=== PATIENT | female | born 1980 | race Caucasian/White ===

== ENCOUNTER 2022-09-10 09:00 | Emergency (ER) | payer OTHER ==
[2022-09-10] MEDS ORDERED: CYCLOBENZAPRINE 10 MG TAB PO STA (09:30)
[2022-09-10] MEDS ORDERED: HYDROcodone/APAP 5-325MG 1 EACH TAB PO STA (09:30)
--- NOTE | 2022-09-10 10:11 | XR ---
EXAMINATION TYPE: XR cervical spine comp DATE OF EXAM: 09/10/2022 COMPARISON: NONE HISTORY: Pain TECHNIQUE: Four views are submitted. FINDINGS: The odontoid is intact. There are no compression deformities. The prevertebral soft tissue structur es are within normal limits. IMPRESSION: 1. No acute process. If symptoms persist or concern for disc herniation consider MRI.
--- NOTE | 2022-09-10 10:22 | ED ---
Neck Injury/Pain HPI - General Chief Complaint: Neck Pain/Injury Stated Complaint: neck pain Time Seen by Provider: 09/10/22 09:10 Source: patient, RN notes reviewed Mode of arrival: ambulatory Limitations: no limitations - History of Present Illness Initial Comments: 41-year-old female presents emergency Department chief complaint of neck pain. Patient states that she's been done on this for us. Days. Patient does have a history of chronic back issues denies any new trauma. Patient states it hurts with movement she does have better pain relief at rest she states that there is tightness along sides of her neck primarily on the left. She states that tonight appropriate this morning with no significant relief no focal weakness no headache no chest pain or shortness breath. - Related Data Previous Rx's Medication Instructions Recorded Cyclobenzaprine [Flexeril] 10 mg PO TID PRN #15 tab 09/10/22 predniSONE 50 mg PO DAILY #5 tab 09/10/22 Allergies Allergy/AdvReac Type Severity Reaction Status Date / Time No Known Allergies Allergy Verified 09/10/22 09:07 Review of Systems ROS Statement: Those systems with pertinent positive or pertinent negative responses have been documented in the HPI. ROS Other: All systems not noted in ROS Statement are negative. Past Medical History Past Medical History: No Reported History History of Any Multi-Drug Resistant Organisms: None Reported Additional Past Surgical History / Comment(s): Lap Past Psychological History: No Psychological Hx Reported Smoking Status: Current every day smoker Past Alcohol Use History: None Reported Past Drug Use History: Marijuana General Exam Limitations: no limitations General appearance: alert, in no apparent distress Head exam: Present: atraumatic, normocephalic, normal inspection Eye exam: Present: normal appearance, PERRL, EOMI. Absent: scleral icterus, conjunctival injection, periorbital swelling Neck exam: Present: normal inspection, tenderness (Cervical paraspinal, trapezius ). Absent: meningismus, full ROM, lymphadenopathy Respiratory exam: Present: normal lung sounds bilaterally. Absent: respiratory distress, wheezes, rales, rhonchi, stridor Cardiovascular Exam: Present: regular rate, normal rhythm, normal heart sounds. Absent: systolic murmur, diastolic murmur, rubs, gallop, clicks Course Vital Signs 09/10/22 09:05 Temperature 98 F Pulse Rate 88 Respiratory 20 Rate Blood Pressure 148/88 O2 Sat by Pulse 99 Oximetry Medical Decision Making - Medical Decision Making Was pt. sent in by a medical professional or institution (, NATHANIEL, FINAL ASSEMBLY AND PACKING SUPERVISOR, urgent care, hospital, or senior care...) When possible be specific @ -[No] Did you speak to anyone other than the patient for history (EMS, parent, family, police, friend...)? What history was obtained from this source @ -[No] Did you review nursing and triage notes (agree or disagree)? Why? @ -[I reviewed and agree with nursing and triage notes] Were old charts reviewed (outside hosp., previous admission, EMS record, old EKG, old radiological studies, urgent care reports/EKG's, senior care records)? Report findings @ -[No old charts were reviewed] Differential Diagnosis (chest pain, altered mental status, abdominal pain women, abdominal pain men, vaginal bleeding, weakness, fever, dyspnea, syncope, headache, dizziness, GI bleed, back pain, seizure, CVA, palpatations, mental health, musculoskeletal)? @ -[Cervical spasm, neck pain, neck strain, this list is not occlusive] EKG interpreted by me (3pts min.). @ -[None] X-rays interpreted by me (1pt min.). @ -[X-ray cervical spine shows no significant acute changes, follow-up for MRI] CT interpreted by me (1pt min.). @ -[None done] U/S interpreted by me (1pt. min.). @ -[None done] What testing was considered but not performed or refused? (CT, X-rays, U/S, labs)? Why? @ -[MRI can be completed outpatient] What meds were considered but not given or refused? Why? @ -[None] Did you discuss the management of the patient with other professionals (professionals i.e. , NATHANIEL, FINAL ASSEMBLY AND PACKING SUPERVISOR, lab, RT, psych nurse, dialysis social worker, sisal picker, teacher, personnel training officer, disease case manager rn)? Give summary @ -[No] Was smoking cessation discussed for >3mins.? @ -[No] Was critical care preformed (if so, how long)? @ -[No] Were there social determinants of health that impacted care today? How? (Homelessness, low income, unemployed, alcoholism, drug addiction, transpor tation, low edu. Level, literacy, decrease access to med. care, prison, rehab)? @ -[No] Was there de-escalation of care discussed even if they declined (Discuss DNR or withdrawal of care, Hospice)? DNR status @ -[No] What co-morbidities impacted this encounter? (DM, HTN, Smoking, COPD, CAD, Cancer, CVA, ARF, Chemo, Hep., AIDS, mental health diagnosis, sleep apnea, morbid obesity)? @ -[None] Was patient admitted / discharged? Hospital course, mention meds given and route, prescriptions, significant lab abnormalities, going to OR and other pertinent info. @ -[Discharged patient has cervical spasm. Patient feels improved after pain relief. Patient has no red flag symptoms. Patient discharged in stable condition with close follow-up return parameters discussed.] Undiagnosed new problem with uncertain prognosis? @ -[No] Drug Therapy requiring intensive monitoring for toxicity (Heparin, Nitro, Insulin, Cardizem)? @ -[No] Were any procedures done? @ -[No] Diagnosis/symptom? @ -[Cervical spasm] Acute, or Chronic, or Acute on Chronic? @ -Acute Uncomplicated (without systemic symptoms) or Complicated (systemic symptoms)? @ -.uncomplicated Side effects of treatment? @ -[No] Exacerbation, Progression, or Severe Exacerbation? @ -[No] Poses a threat to life or bodily function? How? (Chest pain, [place], [place], pneumonia, PE, COPD, DKA, ARF, appy, cholecystitis, CVA, Diverticulitis, Homicidal, Suicidal, threat to staff... and all critical care pts) @ -[No] Disposition Clinical Impression: Trapezius muscle spasm, Neck pain Disposition: HOME SELF-CARE Condition: Stable Instructions (If sedation given, give patient instructions): Muscle Spasm (ED), Spasmodic Torticollis (ED) Additional Instructions: Please return to the Emergency Department if symptoms worsen or any other concerns. Prescriptions: Cyclobenzaprine [Flexeril] 10 mg PO TID PRN #15 tab PRN Reason: Muscle Spasm predniSONE 50 mg PO DAILY #5 tab Is patient prescribed a controlled substance at d/c from ED?: No Referrals: Ronald Canada MD [Primary Care Provider] - 1-2 days Time of Disposition: 10:39
[2022-09-10] MEDS ORDERED: ACET/COD 300 MG/30 MG STARTER PACK 6 TAB BTL PO STA (10:40)
[2022-09-10 10:50] VITALS: BP 133/79; PULSE 62; RESP 18; TEMP 98
== END 2022-09-10 10:50 | disposition home or self-care (01) ==
LOC: EC 09:00
DX: M62.838 Other muscle spasm (principal); F17.200 Nicotine dependence, unspecified, uncomplicated; F12.90 Cannabis use, unspecified, uncomplicated
CPT/HCPCS: 72050; 99283

== ENCOUNTER 2022-10-02 22:03 | Observation (INO) | payer BC ==
[2022-10-02] MEDS ORDERED: SODIUM CHLORIDE 0.9% 1,000 ML IV STA (22:14)
[2022-10-02] MEDS ORDERED: FAMOTIDINE 20 MG/2 ML VIAL IV STA (22:33)
[2022-10-02] MEDS ORDERED: ONDANSETRON 4 MG/2 ML VIAL IVP STA (22:33)
[2022-10-02] MEDS ORDERED: PANTOPRAZOLE 40 MG/10 ML VIAL IVP STA (22:33)
[2022-10-02 22:40] LABS: Basophils % (A) 0 %; Eosinophils # (A) 0.2 k/uL (0-0.7); Eosinophils % (A) 2 %; HCT 45.8 % (34.0-46.0); HGB 15.4 gm/dL (11.4-16.0); Lymphocytes # (A) 3.1 k/uL (1.0-4.8); Lymphocytes % (A) 27 %; MCH 29.9 pg (25.0-35.0); MCHC 33.5 g/dL (31.0-37.0); MCV 89.3 fL (80.0-100.0); Mean Platelet Volume 8.9; Monocytes # (A) 0.5 k/uL (0-1.0); Monocytes % (A) 4 %; Neutrophils # (A) 7.5 k/uL (1.3-7.7); Neutrophils % (A) 65 %; Platelet Count 210 k/uL (150-450); RBC 5.13 m/uL (3.80-5.40); RDW 12.8 % (11.5-15.5); WBC 11.6 k/uL (3.8-10.6)
[2022-10-02 22:49] LABS: Partial Thromboplastin Time 24.8 sec (22.0-30.0); Prothrombin Time 10.2 sec (9.0-12.0)
[2022-10-02 22:56] LABS: ALT 29 U/L (4-34); AST 25 U/L (14-36); African American GFR (CKD) >90 (>60 ml/min/1.73 sqM); Albumin 4.1 g/dL (3.5-5.0); Alkaline Phosphatase 65 U/L (38-126); Anion Gap 7 mmol/L; Blood Urea Nitrogen 12 mg/dL (7-17); Carbon Dioxide 21 mmol/L (22-30); Chloride 108 mmol/L (98-107); Glucose 97 mg/dL (74-99); Lipase 104 U/L (23-300); Magnesium 1.9 mg/dL (1.6-2.3); Non-African American GFR(CKD) >90 (>60 ml/min/1.73 sqM); Potassium 3.7 mmol/L (3.5-5.1); Sodium 136 mmol/L (137-145); Total Bilirubin 0.7 mg/dL (0.2-1.3); Total Protein 6.6 g/dL (6.3-8.2)
--- NOTE | 2022-10-02 23:18 | ED ---
Chest Pain HPI - General Chief Complaint: Chest Pain Stated Complaint: Chest Pain Time Seen by Provider: 10/02/22 22:14 Source: patient Mode of arrival: wheelchair Limitations: no limitations - History of Present Illness Initial Comments: Patient is a 41-year-old female presents to the emergency department for chest pain. It started 2 days ago. Patient describes as a consistent burning/pressure sensation with intermittent sharp pain. No alleviating, exacerbating, or precipitating factors. Patient feels nauseous no vomiting. No shortness of breath, leg pain, leg swelling. No fever, chills, upper respiratory symptoms. No abdominal pain. Patient does not have history of cardiac disease. No history DVT or PE. She does have family history of cardiac disease including father who of congestive heart failure at age 56 and brother who of heart attack age 50. Patient has never been evaluated by mannequin wig maker she has never had an echocardiogram or stress test. She is a smoker with a 30 pack year history. She reports occasional alcohol use. Patient does state she is very anxious due to recent loss in the family. - Related Data Home Medications Medication Instructions Recorded Confirmed Ibuprofen [Motrin Ib] 400 mg PO Q8H PRN 10/02/22 10/02/22 Allergies Allergy/AdvReac Type Severity Reaction Status Date / Time No Known Allergies Allergy Verified 10/02/22 22:28 Review of Systems ROS Statement: Those systems with pertinent positive or pertinent negative responses have been documented in the HPI. ROS Other: All systems not noted in ROS Statement are negative. Past Medical History Past Medical History: No Reported History Additional Past Medical History / Comment(s): endometriosis History of Any Multi-Drug Resistant Organisms: None Reported Additional Past Surgical History / Comment(s): Lap Past Psychological History: No Psychological Hx Reported Smoking Status: Current every day smoker Past Alcohol Use History: None Reported Past Drug Use History: Marijuana General Exam Limitations: no limitations General appearance: alert, in no apparent distress Head exam: Present: atraumatic, normocephalic, normal inspection Eye exam: Present: normal appearance, PERRL, EOMI. Absent: scleral icterus, conjunctival injection, periorbital swelling Respiratory exam: Present: normal lung sounds bilaterally. Absent: respiratory distress, wheezes, rales, rhonchi, stridor Cardiovascular Exam: Present: regular rate, normal rhythm, normal heart sounds. Absent: systolic murmur, diastolic murmur, rubs, gallop, clicks GI/Abdominal exam: Present: soft, normal bowel sounds. Absent: distended, tenderness, guarding, rebound, rigid Extremities exam: Present: normal inspection, full ROM, normal capillary refill. Absent: calf tenderness Neurological exam: Present: alert, oriented X3, CN II-XII intact Psychiatric exam: Present: normal affect, anxious. Absent: normal mood Skin exam: Present: warm, dry, intact, normal color. Absent: rash Course Vital Signs 10/02/22 10/02/22 22:08 23:24 Temperature 97.9 F Pulse Rate 87 78 Respiratory 20 18 Rate Blood Pressure 155/94 119/81 O2 Sat by Pulse 99 98 Oximetry Chest Pain MDM - [facility] EKG taken at 22:35, interpreted by myself Sinus rhythm, no ST segment or T-wave abnormality Ventricular rate 66, NJ interval 148, QRS duration 89, QTC 395 Was pt. sent in by a medical professional or institution (, PA, EMPLOYMENT TRAINER, urgent care, hospital, or skilled nursing...) When possible be specific @ -No Did you speak to anyone other than the patient for history (EMS, parent, family, police, friend...)? What history was obtained from this source @ -No Did you review nursing and triage notes (agree or disagree)? Why? @ -I reviewed and agree with nursing and triage notes Were old charts reviewed (outside hosp., previous admission, EMS record, old EKG, old radiological studies, urgent care reports/EKG's, skilled nursing records)? Report findings @ -No old charts were reviewed Differential Diagnosis (chest pain, altered mental status, abdominal pain women, abdominal pain men, vaginal bleeding, weakness, fever, dyspnea, syncope, headache, dizziness, GI bleed, back pain, seizure, CVA, palpatations, mental health)? @ -Differential Chest Pain: Stable Angina, Unstable Angina, STEMI, NSTEMI Aortic Dissection, Pneumothorax, Musculoskeletal, Esophageal Spasm GERD, Cholecystitis, Pancreatitis, Zoster, this is not meant to be an all-inclusive list. EKG interpreted by me (3pts min.). @ -As above X-rays interpreted by me (1pt min.). @ -Yes, chest x-ray negative for acute process CT interpreted by me (1pt min.). @ -None done U/S interpreted by me (1pt. min.). @ -None done What testing was considered but not performed or refused? (CT, X-rays, U/S, labs)? Why? @ -None What meds were considered but not given or refused? Why? @ -None Did you discuss the management of the patient with other professionals (professionals i.e. Dr., PA, EMPLOYMENT TRAINER, lab, RT, psych nurse, social group worker, lens blocker, teacher, youth corrections officer, shoe caser)? Give summary @ -No Was smoking cessation discussed for >3mins.? @ -No Was critical care preformed (if so, how long)? @ -No Were there social determinants of health that impacted care today? How? (Homelessness, low income, unemployed, alcoholism, drug addiction, transportation, low edu. Level, literacy, decrease access to med. care, fpc, rehab)? @ -No Was there de-escalation of care discussed even if they declined (Discuss DNR or withdrawal of care, Hospice)? DNR status @ -No What co-morbidities impacted this encounter? (DM, HTN, Smoking, COPD, CAD, C ancer, CVA, ARF, Chemo, Hep., AIDS, mental health diagnosis, sleep apnea, morbid obesity)? @ -None Was patient admitted / discharged? Hospital course, mention meds given and route, prescriptions, significant lab abnormalities, going to OR and other pertinent info. @ -Admitted. Patient has atypical chest pain. EKG shows no evidence of acute ischemia initial troponin negative however patient has risk factors and will stay for cardiology evaluation. Case discussed with Dr. Granados who accepts admission Undiagnosed new problem with uncertain prognosis? @ -No Drug Therapy requiring intensive monitoring for toxicity (Heparin, Nitro, Insulin, Cardizem)? @ -No Were any procedures done? @ -No Diagnosis/symptom? @ -Atypical chest pain Acute, or Chronic, or Acute on Chronic? @ -Acute Uncomplicated (without systemic symptoms) or Complicated (systemic symptoms)? @ -default Side effects of treatment? @ -No Exacerbation, Progression, or Severe Exacerbation? @ -No Poses a threat to life or bodily function? How? (Chest pain, [place], [place], pneumonia, PE, COPD, DKA, ARF, appy, cholecystitis, CVA, Diverticulitis, Homicidal, Suicidal, threat to staff... and all critical care pts) @ -Yes Dr. Martin is my attending. Disposition Clinical Impression: Atypical chest pain Disposition: ADMITTED IP TO THIS HOSP Condition: Stable Referrals: None,Stated [Primary Care Provider] - 1-2 days
[2022-10-02 23:32] LABS: Appearance,Urine Clear (Clear); Bilirubin,Urine Negative (Negative); Blood,Urine Negative (Negative); Color,Urine Light Yellow; Glucose,Urine (UA) Negative (Negative); Ketones,Urine Negative (Negative); Leukocyte Esterase,Urine Negative (Negative); Nitrite,Urine Negative (Negative); PH, Urine 6.5 (5.0-8.0); Protein,Urine Negative (Negative); Specific Gravity,Urine 1.006 (1.001-1.035); Urobilinogen,Urine <2.0 mg/dL (<2.0)
--- NOTE | 2022-10-02 23:32 | XR ---
EXAMINATION TYPE: XR chest 2V DATE OF EXAM: 10/02/2022 COMPARISON: None INDICATION: Rest pain TECHNIQUE: Frontal and lateral views of the chest are obtained. FINDINGS: The heart size is normal. The pulmonary vasculature is normal. The lungs are clear. IMPRESSION: 1. No acute pulmonary process.
[2022-10-02] MEDS ORDERED: SODIUM CHLORIDE 0.9% 1,000 ML IV SCH (23:45)
[2022-10-02] MEDS ORDERED: KETOROLAC 15 MG/ML 1 ML VIAL IVP PRN (23:58)
[2022-10-02] MEDS ORDERED: ONDANSETRON 4 MG/2 ML VIAL IVP PRN (23:58)
[2022-10-03] MEDS ORDERED: ASPIRIN 325 MG TAB PO STA
[2022-10-03] MEDS ORDERED: ACETAMINOPHEN TAB 500 MG TAB PO PRN (00:01)
[2022-10-03 02:12] VITALS: TEMP 98.1
--- NOTE | 2022-10-03 03:47 | P.HPIM ---
History of Present Illness H&P Date: 10/03/22 The patient is a 41-year-old female with no known PMH presents to the emergency room with complaint of chest pain. The patient reports that she has been experiencing left-sided and substernal chest discomfort over the past 3-4 weeks, occurring intermittently, 9 out of 10 at maximal intensity, pressure and sharp in nature, nonradiating and nonpleuritic, with no alleviating or exacerbating features. She denied lower extremity swelling or pain. The patient reports a significant family history of heart disease with her father dying from just of heart failure at 56 and having suffered multiple MIs in his 40s. She also reports having lost her brother last week due to an VT and he was 50 years old. She was off reports smoking 1 pack of cigarettes daily with recreational marijuana use. She reports being chest pain free at the time of interview. In the emergency room, an EKG revealed sinus rhythm at [address]/T-wave changes noted as reviewed by me. Laboratory evaluation revealed leukocytosis of 11.6, sodium 136, chloride 108, CO2 21, troponin less than 0.012, and an unremarkable UA. ED documentation reviewed and case discussed with ED provider. Review of systems: Pertinent positives and negatives as discussed in HPI, a complete review of systems was performed and all other systems are negative. Physical examination: Vital signs reviewed General: non toxic, no distress, appears at stated age, normal weight Derm: no unusual rashes/lesions, warm Head: atraumatic, normocephalic, symmetric Eyes: EOMI, no lid lag, anicteric sclera, pupils equal round reactive to light ENT: Nose and ears atraumatic Neck: No cervical lymphadenopathy, trachea midline, supple Mouth: no lip lesion, mucus membranes moist Cardiovascular: S1S2 reg, no murmur, positive dorsalis pedis pulse bilateral, no edema Lungs: CTA bilateral, no rhonchi, no rales, no accessory muscle use Abdominal: soft, nontender to palpation, no guarding Ext: muscle strength 5 out of 5 in all 4 extremities grossly, no gross muscle atrophy, no contractures, Neuro: CN II-XI grossly intact, no gross focal neuro deficits Psych: Alert, oriented, appropriate affect Assessment: Chest pain with atypical features Leukocytosis Tobacco abuse Imaging: In the emergency room, an EKG revealed sinus rhythm at [address]/T-wave changes noted as reviewed by me. Chest x-ray was unremarkable. Data Review: Laboratory evaluation revealed leukocytosis of 11.6, sodium 136, chloride 108, CO2 21, troponin less than 0.012, and an unremarkable UA. Plan: Cardiac monitoring Cardiology consult Trend troponin Strongly advised on the importance of cessation from tobacco use Leukocytosis likely secondary to acute stressor with no signs of active infection at this time DVT prophylaxis: Heparin subcu The patient is admitted with an anticipated less than 2 midnight stay for evaluation of chest pain CODE STATUS: Full Code Discussed with: Patient Anticipated discharge place: Home Past Medical History Past Medical History: No Reported History Additional Past Medical History / Comment(s): endometriosis History of Any Multi-Drug Resistant Organisms: None Reported Additional Past Surgical History / Comment(s): Lap Past Psychological History: No Psychological Hx Reported Smoking Status: Current every day smoker Past Alcohol Use History: None Reported Past Drug Use History: Marijuana - Past Family History Father Family Medical History: Congestive Heart Failure (CHF) Medications and Allergies Home Medications Medication Instructions Recorded Confirmed Type Ibuprofen [Motrin Ib] 400 mg PO Q8H PRN 10/02/22 10/02/22 History Allergies Allergy/AdvReac Type Severity Reaction Status Date / Time No Known Allergies Allergy Verified 10/02/22 22:28 Physical Exam Vitals: Vital Signs Temp Pulse Pulse Resp BP BP Pulse Ox 10/03/22 02:00 98.1 F 72 19 151/90 94 L 10/03/22 00:41 65 126/75 10/03/22 00:30 71 19 96 10/03/22 00:20 68 20 97 10/03/22 00:10 68 11 L 97 10/03/22 00:00 80 12 97 10/02/22 23:50 81 14 98 10/02/22 23:40 85 18 119/81 98 10/02/22 23:30 156/92 10/02/22 23:24 78 18 119/81 98 10/02/22 22:50 72 100 10/02/22 22:40 75 19 168/96 99 10/02/22 22:30 83 128/88 98 10/02/22 22:21 77 97 10/02/22 22:08 97.9 F 87 20 155/94 99 Intake and Output 10/02/22 10/02/22 10/03/22 14:59 22:59 06:59 Other: Weight 59.421 kg 59.421 kg Results CBC & Chem 7: 10/02/22 22:27 10/02/22 22:27 Labs: Abnormal Lab Results - Last 24 Hours (Table) 10/02/22 10/02/22 Range/Units 22:27 22:27 WBC 11.6 H (3.8-10.6) k/uL Sodium 136 L (137-145) mmol/L Chloride 108 H (98-107) mmol/L Carbon Dioxide 21 L (22-30) mmol/L Thrombosis Risk Factor Assmnt - Choose All That Apply Any of the Below Risk Factors Present?: No
[2022-10-03 07:59] VITALS: BP 123/66; PULSE 67; RESP 16
[2022-10-03] MEDS ORDERED: HEPARIN SODIUM,PORCINE/PF 5,000 UNIT/0.5 ML SYRINGE SQ SCH (08:00)
--- NOTE | 2022-10-03 10:54 | P.CRDCN ---
History of Present Illness History of present illness: HISTORY OF PRESENT ILLNESS: This is a 41 year old female with a past medical history significant for nicotine dependence and family history of premature coronary artery disease. Patient does not follow with a medical i d sales. We have been asked to see the patient in consultation for chest pain. Patient examined at the bedside. Patient states that she has been having chest discomfort for the past week. She states it feels like somebody is sitting on her chest. She states the pain comes and goes. She states the episode lasted for a few minutes and then resolves on its own. She states the pain is nonexertional and can happen even when she is just watching TV. She denies having any palpitations. She does report having some associated nausea and lightheadedness. She is a current cigarette smoker of one pack per day. She states that her brother of a heart attack at the age of 50 and her father from heart disease in his mid 50s. * EKG reveals sinus mechanism with no signs of acute ischemia. * Chest xray negative for acute process * Laboratory data: WBC 11.6. Hemoglobin 15.4. Platelet count 210. Sodium 136. Potassium 3.7. BUN 12. Creatinine 0.63. Magnesium 1.9. Troponin negative 3 * Current home cardiac medications include none REVIEW OF SYSTEMS: At the time of my exam: CONSTITUTIONAL: Denies fever or chills. HEENT: Denies blurred vision, vision changes, or eye pain. Denies hemoptysis CARDIOVASCULAR: Denies chest pain. Denies orthopnea. Denies PND. Denies palpitations RESPIRATORY: Denies shortness of breath. GASTROINTESTINAL: Denies abdominal pain. Denies nausea or vomiting. HEMATOLOGIC: Denies bleeding disorders. GENITOURINARY: Denies any blood in urine. SKIN: Denies pruitis. Denies rash. PHYSICAL EXAM: VITAL SIGNS: Reviewed. GENERAL: Well-developed in no acute distress. HEENT: Head is normocephalic. Pupils are equal, round. Sclerae anicteric. Mucous membranes of the mouth are moist. Neck supple. No JVD or thyromegaly LUNGS: Respirations even and unlabored. Lungs essentially clear to auscultation bilaterally. HEART: Regular rate and rhythm. S1 and S2 heard. ABDOMEN: Soft. Nondistended. Nontender. EXTREMITIES: Normal range of motion. No clubbing or cyanosis. Peripheral pulses intact. No lower extremity edema NEUROLOGIC: Awake and alert. Oriented x 3. ASSESSMENT: Chest pain, troponins negative 3 Nicotine dependence Family history of premature coronary artery disease PLAN: An acute coronary event has been ruled out Obtain 2-D echo to assess cardiac structure and function Smoking cessation encouraged. Patient states that she is wanting to stop smoking. Patient to undergo stress echocardiogram today If negative, she may be discharged home from a cardiac standpoint Nurse practitioner note has been reviewed by physician. Signing provider agrees with the documented findings, assessment, and plan of care. Past Medical History Past Medical History: No Reported History Additional Past Medical History / Comment(s): endometriosis History of Any Multi-Drug Resistant Organisms: None Reported Additional Past Surgical History / Comment(s): Lap Past Psychological History: No Psychological Hx Reported Smoking Status: Current every day smoker Past Alcohol Use History: None Reported Past Drug Use History: Marijuana - Past Family History Father Family Medical History: Congestive Heart Failure (CHF) Medications and Allergies Home Medications Medication Instructions Recorded Confirmed Type Ibuprofen [Motrin Ib] 400 mg PO Q8H PRN 10/02/22 10/02/22 History Allergies Allergy/AdvReac Type Severity Reaction Status Date / Time No Known Allergies Allergy Verified 10/02/22 22:28 Physical Exam Vitals: Vital Signs Temp Pulse Pulse Resp BP BP Pulse Ox 10/03/22 07:35 98.1 F 67 16 123/66 98 10/03/22 02:00 98.1 F 72 19 151/90 94 L 10/03/22 00:41 65 126/75 10/03/22 00:30 71 19 96 10/03/22 00:20 68 20 97 10/03/22 00:10 68 11 L 97 10/03/22 00:00 80 12 97 10/02/22 23:50 81 14 98 10/02/22 23:40 85 18 119/81 98 10/02/22 23:30 156/92 10/02/22 23:24 78 18 119/81 98 10/02/22 22:50 72 100 10/02/22 22:40 75 19 168/96 99 10/02/22 22:30 83 128/88 98 10/02/22 22:21 77 97 10/02/22 22:08 97.9 F 87 20 155/94 99 Intake and Output 05/10/03/22 10/03/22 22:59 06:59 14:59 Other: # Voids 1 Weight 59.421 kg 59.421 kg Results 10/02/22 22:27 10/02/22 22:27 Cardiac Enzymes 10/02/22 10/02/22 10/03/22 Range/Units 22:27 22:27 00:16 AST 25 (14-36) U/L Troponin I <0.012 <0.012 (0.000-0.034) ng/mL 10/03/22 Range/Units 05:17 AST (14-36) U/L Troponin I <0.012 (0.000-0.034) ng/mL Coagulation 10/02/22 Range/Units 22: PT 10.2 (9.0-12.0) sec APTT 24.8 (22.0-30.0) sec CBC 10/02/22 Range/Units 22: WBC 11.6 H (3.8-10.6) k/uL RBC 5.13 (3.80-5.40) m/uL Hgb 15.4 (11.4-16.0) gm/dL Hct 45.8 (34.0-46.0) % Plt Count 210 (150-450) k/uL Comprehensive Metabolic Panel 10/02/22 Range/Units 22:27 Sodium 136 L (137-145) mmol/L Potassium 3.7 (3.5-5.1) mmol/L Chloride 108 H (98-107) mmol/L Carbon Dioxide 21 L (22-30) mmol/L BUN 12 (7-17) mg/dL Creatinine 0.63 (0.52-1.04) mg/dL Glucose 97 (74-99) mg/dL Calcium 9.0 (8.4-10.2) mg/dL AST 25 (14-36) U/L ALT 29 (4-34) U/L Alkaline Phosphatase 65 (38-126) U/L Total Protein 6.6 (6.3-8.2) g/dL Albumin 4.1 (3.5-5.0) g/dL Current Medications Generic Name Dose Route Start Last Admin Trade Name Freq PRN Reason Stop Dose Admin Acetaminophen 1,000 mg 10/03/22 00:01 Acetaminophen Tab 500 Mg Tab PO Q4H PRN Pain Heparin Sodium (Porcine) 5,000 unit 10/03/22 08:00 Heparin Sodium,Porcine/Pf 5,000 Unit/0.5 Ml Syringe SQ Q8HR TRISTON Sodium Chloride 1,000 mls @ 75 mls/hr 10/02/22 23:45 10/03/22 00:14 Saline 0.9% IV 75 mls/hr .[id number] TRISTON Administration Ondansetron HCl 4 mg 10/02/22 23:58 Ondansetron 4 Mg/2 Ml Vial IVP Q8HR PRN Nausea And Vomiting Intake and Output 10/02/22 10/03/22 10/03/22 22:59 06:59 14:59 Other: # Voids 1 Weight 59.421 kg 59.421 kg 10/02/22 22:27 10/02/22 22:27
--- NOTE | 2022-10-03 13:20 | P.DS ---
Providers Date of admission: 10/03/22 00:14 Expected date of discharge: 10/03/22 Attending physician: Karl Granados MD Consults: 10/02/22 23:58 Consult Physician Routine Consulting Provider: Maximilian Estrada Consult Reason/Comments: chest pain Do you want consulting provider notified?: Yes Primary care physician: Stated None Hospital Course: Discharge Diagnosis: Chest pain, acute coronary event ruled out. Patient to follow-up outpatient with their office in one week to discuss echocardiogram results as they are not available at time of discharge. Nicotine dependence, recommend smoking cessation. Hospital Course: Patient is a very pleasant 41-year-old female with a past medical history of nicotine dependence and family history of premature coronary artery disease with reports of losing her father and brother by the age of 51 to an acute coronary event. Patient presented to the emergency department with the chief complaint of chest pain. Patient reported she had been experiencing intermittent chest pain over the past week and isn't sure if it is due to stress or cardiac problems because she just recently lost her brother to a massive heart attack at the age of 50. Patient states pain is to midsternal chest and described as a pressure-like sensation. She states she has experiences pain with exertion as well as at rest and does not seem to identify any known triggering factors. She underwent full evaluation in the emergency department. Labs completed and reviewed. CBC showing mild leukocytosis with WBC count of 11.6. Coagulation profile unremarkable BMP revealing mild hyponatremia with sodium of 136, hypochloremia with chloride of 108, and hypocarbia with bicarb of 21. Liver profile unremarkable. Troponin less than 0.012. Lipase 104. Urinalysis negative for infection. EKG was completed showing normal sinus rhythm at 66 bpm with no noted T-wave or ST abnormalities showing no signs of acute ischemia upon personal review and interpretation. Chest x-ray also reviewed lungs clear showing no signs of acute cardiopulmonary process. Patient was admitted under our services with consultation to cardiology. Troponins trended overnight all negative at less than 0.0123 draws. Hemoglobin A1c obtained resulting of 5.3%. Lipid profile unremarkable with the exception of low HDL of 35.80. Echocardiogram was completed and patient was taken for an exercise stress echo. Stress test was reported to be negative per cardiology as reported as not available at time of discharge. Patient cleared from cardiac perspective and to follow up outpatient with their office in one week to discuss echocardiogram results as they are not available at time of discharge. Physical exam: Patient seen and examined at bedside. She has returned from stress test today and eating lunch currently denying any complaints of pain or discomfort. Patient was a little tearful and relieved when informed of negative stress test results. Vital signs reviewed and stable. General: Nontoxic, no distress and appears stated age. Derm: Skin warm and dry, normal coloration for ethnicity. Head: Atraumatic, normocephalic and symmetric. Eyes: EOMs intact, no lid lag, and anicteric sclera Mouth: no lip lesions, mucus membranes moist Cardiovascular: regular rate and rhythm with normal S1S2, no murmur, positive posterior tibial pulses bilaterally, and cap refill < 2 seconds. Lungs: Respirations even, regular, and unlabored on room air. Lungs CTA bilaterally, no rhonchi, no rales, no wheezing, and no accessory muscle usage. Abdominal: soft, nontender to palpation, no guarding, no appreciable organomegaly Ext: ROM intact. No gross muscle atrophy, no edema, no contractures Neuro: Speech clear, face symmetrical and CN II-XII grossly intact with no noted focal neuro deficits Psych: Alert and oriented to person, place, time, and situation. Appropriate and pleasant affect. A total of 31 minutes of time were spent preparing this complex discharge summary. Pt was discharged on 10/03/22 at 12:34 PM Patient was seen independently by Nurse Practitioner. This document was prepared using [employer] dictation software. Please allow for errors in customer support assistant while rare they do occur. Patient Condition at Discharge: Stable Plan - Discharge Summary New Discharge Prescriptions: Continue Ibuprofen [Motrin Ib] 400 mg PO Q8H PRN PRN Reason: Pain Discharge Medication List Ibuprofen [Motrin Ib] 400 mg PO Q8H PRN 10/02/22 [History] Follow up Appointment(s)/Referral(s): Hugo Bridges MD [STAFF PHYSICIAN] - 2 Weeks (Office will call with appointment time and date.) Celso Bhatti MD [REFERRING] - 1 Week Patient Instructions/Handouts: Chest Pain (DC), Cardiac Stress Test (DC) Activity/Diet/Wound Care/Special Instructions: Activity: As tolerated. Take breaks as needed. Diet: Heart healthy and carb consistent diet. Avoid salts, or foods with hidden salts such as canned or boxed foods and frozen dinners. Extra salt makes your heart work harder and traps the fluid in your body for longer. Special Instructions: Take all of your medications as directed and remember to keep all of your doctor's appointments and follow-up as needed. You were cleared from cardiac perspective but it is important to follow up outpatient with their office in one week to discuss echocardiogram results as they are not available at time of your discharge. Strongly encourage smoking cessation. Thank you for allowing us to participate in your care, it was truly a pleasure having you for our patient!!! Discharge Disposition: HOME SELF-CARE
[2022-10-03 16:17] LABS: Chol/HDL Ratio 4.11 Ratio; LDL Cholesterol,Calculated 95.2 mg/dL (0.0-131.0); VLDL Calculation 16.02 mg/dL (5.00-40.00)
--- NOTE | 2022-10-04 17:04 | CA ---
Transthoracic Echo Report Name: Piper Mendieta Age: 41 Gender: F : 1980 Exam Date: 10/03/2022 12:14 Exam Location: [facility] [place] [facility] Ht (in): 66 Wt (lb): 131 Ordering Physician: Brittany Braxton Attending/Referring Phys: [id number], Irais Guyline Operator Cindi Suarez RDCS Procedure CPT: Indications: LV function Cardiac Hx: Technical Quality: Fair Contrast 1: Total Dose (mL): Contrast 2: Total Dose (mL): MEASUREMENTS (Male / Female) Normal Values 2D ECHO LV Diastolic Diameter PLAX 3.8 cm 4.2 - 5.9 / 3.9 - 5.3 cm LV Systolic Diameter PLAX 2.0 cm IVS Diastolic Thickness 0.9 cm 0.6 - 1.0 / 0.6 - 0.9 cm LVPW Diastolic Thickness 1.0 cm 0.6 - 1.0 / 0.6 - 0.9 cm LV Relative Wall Thickness 0.5 RV Internal Dim ED PLAX 3.1 cm LA Volume 24.4 cm??? 18 - 58 / 22 - 52 cm??? M-MODE Aortic Root Diameter MM 2.7 cm LA Systolic Diameter MM 3.7 cm LA Ao Ratio MM 1.3 AV Cusp Separation MM 2.0 cm DOPPLER AV Peak Velocity 123.9 cm/s AV Peak Gradient 6.1 mmHg AV Mean Velocity 91.8 cm/s AV Mean Gradient 3.7 mmHg AV Velocity Time Integral 28.0 cm LVOT Peak Velocity 118.8 cm/s LVOT Peak Gradient 5.6 mmHg LVOT Velocity Time Integral 25.4 cm MV Area PHT 4.2 cm??? Mitral E Point Velocity 87.7 cm/s Mitral A Point Velocity 68.0 cm/s Mitral E to A Ratio 1.3 MV Deceleration Time 178.8 ms MV E' Velocity 11.0 cm/s Mitral E to MV E' Ratio 8.0 TR Peak Velocity 208.8 cm/s TR Peak Gradient 17.4 mmHg Right Ventricular Systolic Press 21.9 mmHg FINDINGS Left Ventricle Normal Left ventricular size, wall thickness, systolic function with no obvious regional wall motion abnormalities. Normal Left ventricular diastolic filling pattern. Left ventricular ejection fraction is estimated at 55-60 %. Right Ventricle Normal right ventricular size and function. Right ventricular systolic pressure within normal limits. Right Atrium Normal right atrial size. Left Atrium Normal left atrial size. Mitral Valve Structurally normal mitral valve. No mitral stenosis, regurgitation or prolapse. Aortic Valve Trileaflet aortic valve. No aortic valve stenosis or regurgitation. Tricuspid Valve Structurally normal tricuspid valve. Mild tricuspid regurgitation. Pulmonic Valve Structurally normal pulmonic valve. Trace pulmonic regurgitation. Pericardium No pericardial effusion. Aorta Normal size aortic root and proximal ascending aorta. CONCLUSIONS Normal LV systolic function Previewed by: Dr. Hugo Bridges MD (Electronically Signed) Final Date: 04 Oct 2022 17:04
--- NOTE | 2022-10-04 17:59 | CA ---
Stress Echo Report Piper Mendieta Age: 41 Gender: F : 1980 Exam Date: 10/03/2022 11:53 Exam Location: [facility] Ht (in): 66 Wt (lb): 131 Ordering Physician: Brittany Braxton Referring Physician: [id number] Leaf Conditioner: AIDEN Technologist Procedure CPT: Indication: CP ICD-9 Codes: Rhythm: Patient History: CHEST PAIN, DIFFICULTY IN BREATHING, FAMILY HX OF HEART DISEASE, CURRENT SMOKER 1 PPD X 30 YEARS Cardiac Medications: Medications in past 24 hours: Contrast: Stress Results Protocol: Sabas Total dose(mL): Exercise Duration (min:sec): 10:[address] Depression (mm): Angina Score: Vega Score: METS: 11.7 Resting HR: 76 Resting BP: 141 / 77 Peak HR: 163 Peak BP: 201 / 92 Max Predicted HR: 180 91 % Max Predicted HR Target HR: 153 Double Product: [id number] Stress Summary: BP Response: Reason for Termination: TARGET HR/MAX EXERTION Cardiac Symptoms: NONE ECG Analysis Resting ECG: Stress ECG: Arrhythmia: Echo Analysis Resting Echo: Peak Echo Analysis: MEASUREMENTS (Male/Female) Normal Values CONCLUSIONS Exercise stress echo 9756 beats a minute, Baseline blood pressure 141/77 mmHg Patient exercised Sabas protocol for an minutes 13 seconds Peak heart rate 163 beats a minute to 90 blood pressure 201/92 mmHg No ECG ms for ischemia line no significant arrhythmias Excellent augmentation of overall LV contractility at peak exercise Normal LV systolic function at the recovery Impression No ECG or echocardiographic evidence for ischemia Good exercise capacity Dr. Hugo Bridges MD (Electronically Signed) Final Date: 04 Oct 2022 17:59
== END 2022-10-03 13:51 | disposition home or self-care (01) ==
LOC: EC 22:03 → 6NMEDSUR 10-03 00:14
PROVIDERS: ADMIT Internal Medicine; ATTEND Internal Medicine
DX: R07.89 Other chest pain (principal); E87.1 Hypo-osmolality and hyponatremia; D72.829 Elevated white blood cell count, unspecified; E87.8 Other disorders of electrolyte and fluid balance, not elsewhere classified; R11.0 Nausea; R42 Dizziness and giddiness; N80.9 Endometriosis, unspecified; F17.210 Nicotine dependence, cigarettes, uncomplicated; Z63.4 Disappearance and death of family member; Z82.49 Family history of ischemic heart disease and other diseases of the circulatory system; Z71.6 Tobacco abuse counseling
CPT/HCPCS: 96361; 96374; 96375; 99285; 36415; 93005; 93306; 93351; 80061; 80053; 83690; 83735; 84484 ×2; 85025; 85610; 85730; 81003; 83036; 71046; G0378; J2405; C9113

== ENCOUNTER → 2022-10-14 | Outpatient (CLI) | payer OTHER ==
--- NOTE | 2022-10-14 10:53 | XR ---
EXAM TYPE: LUMBAR SPINE X RAY SERIES COMPARISON: NONE HISTORY: Chronic back pain TECHNIQUE: 4 views are submitted. FINDINGS: Alignment is anatomic. The pedicles are intact. The transverse processes are intact. There is no s pondylolysis or spondylolisthesis. Hypertrophic and mild multilevel degenerative disc disease. There is facet arthropathy at levels L4-5 and L5-S1. IMPRESSION: 1. Multilevel mild degenerative disc disease with facet arthropathy most noted at L4-5 and L5-S1. Con patient financial counselor follow-up MRI.
== END | disposition home or self-care (01) ==
LOC: RADXRMAIN 10:18
PROVIDERS: ATTEND Family Medicine
DX: M51.36 Other intervertebral disc degeneration, lumbar region (principal); M51.37 Other intervertebral disc degeneration, lumbosacral region; M47.816 Spondylosis without myelopathy or radiculopathy, lumbar region; M47.817 Spondylosis without myelopathy or radiculopathy, lumbosacral region; G89.29 Other chronic pain
CPT/HCPCS: 72110

== ENCOUNTER 2023-08-12 11:21 | Emergency (ER) | payer OTHER ==
[2023-08-12] MEDS: HYDROcodone/APAP 10-325MG 1 EACH TAB PO ONE (11:50)
[2023-08-12] MEDS: ORPHENADRINE 30 MG/ML 2 ML VIAL IM STA (11:51)
[2023-08-12] MEDS: KETOROLAC 15 MG/ML 1 ML VIAL IM STA (11:52)
[2023-08-12] MEDS: LIDOCAINE 4% PATCH TOPICAL ONE (12:06)
--- NOTE | 2023-08-12 12:08 | ED ---
Back Pain HPI - General Chief Complaint: Back Pain/Injury Stated Complaint: Low back pain Time Seen by Provider: 08/12/23 11:26 Source: patient, family, RN notes reviewed Mode of arrival: ambulatory Limitations: no limitations - History of Present Illness Initial Comments: This is a 42-year-old female who presents to the emergency department for lower back pain. Patient has chronic lower back pain that she has been dealing with for the last couple of years. She has had occasional x-rays and steroid injections, but not any advanced imaging. States that over the last 1 to 2 days the pain became severe. She has radiation down the left leg. Denies any new injuries. Denies any loss of bowel/bladder control or saddle anesthesia. MD Complaint: back pain - Related Data Home Medications Medication Instructions Recorded Confirmed Venlafaxine HCl ER [Effexor Xr] 75 mg PO DAILY 08/12/23 08/12/23 Venlafaxine HCl [Effexor XR] 150 mg PO DAILY 08/12/23 08/12/23 busPIRone HCL 15 mg PO BID 08/12/23 08/12/23 clonazePAM 1 mg PO BID 08/12/23 08/12/23 hydrOXYzine HCL [Atarax] 25 mg PO HS 08/12/23 08/12/23 Previous Rx's Medication Instructions Recorded methocarbamoL [Robaxin-750] 1,500 mg PO TID PRN #30 tab 08/12/23 predniSONE 50 mg PO DAILY 5 Days #5 tab 08/12/23 Allergies Allergy/AdvReac Type Severity Reaction Status Date / Time No Known Allergies Allergy Verified 08/12/23 11:52 Review of Systems ROS Statement: Those systems with pertinent positive or pertinent negative responses have been documented in the HPI. ROS Other: All systems not noted in ROS Statement are negative. Past Medical History Past Medical History: No Reported History Additional Past Medical History / Comment(s): endometriosis chronic back pain History of Any Multi-Drug Resistant Organisms: None Reported Additional Past Surgical History / Comment(s): Lap Past Psychological History: No Psychological Hx Reported Smoking Status: Current every day smoker Past Alcohol Use History: None Reported Past Drug Use History: Marijuana - Past Family History Father Family Medical History: Congestive Heart Failure (CHF) General Exam Limitations: no limitations General appearance: alert, in no apparent distress Head exam: Present: atraumatic, normocephalic, normal inspection Respiratory exam: Present: normal lung sounds bilaterally. Absent: respiratory distress, wheezes, rales, rhonchi, stridor Cardiovascular Exam: Present: regular rate, normal rhythm, normal heart sounds. Absent: systolic murmur, diastolic murmur, rubs, gallop, clicks Back exam: Present: tenderness (Left lower back) Neurological exam: Present: alert, oriented X3, CN II-XII intact Psychiatric exam: Present: normal affect, normal mood Skin exam: Present: warm, dry, intact, normal color. Absent: rash Course Vital Signs 08/12/23 08/12/23 08/12/23 11:22 12:41 12:55 Temperature 98 F 98.1 F 98.1 F Pulse Rate 86 82 82 Respiratory 16 18 18 Rate Blood Pressure 145/89 136/90 136/90 O2 Sat by Pulse 99 99 99 Oximetry Medical Decision Making - Medical Decision Making This is a 42 year old female who presents to the emergency department for back pain. Was pt. sent in by a medical professional or institution? @ -No Did you speak to anyone other than the patient for history? @ -No Did you review nursing and triage notes? @ -Yes, and I agree, it is accurate with regards to the patient's symptoms. Were old charts reviewed? @ -No Differential Diagnosis? @ -Differential Back Pain: Strain, zoster, cauda equina syndrome, epidural abscess, vertebral osteomyelitis, discitis, fracture, subluxation, disc herniation, DJD, spinal stenosis, dissection, AAA, pancreatitis, peptic ulcer disease, pyelonephritis, kidney stone, this is not meant to be an all-inclusive list. EKG interpreted by me (3pts min.)? @ -Not obtained X-rays interpreted by me (1pt min.)? @ -X-ray of the lumbar spine obtained. My interpretation identifies no acute fractures. CT interpreted by me (1pt min.)? @ -Not obtained U/S interpreted by me (1pt. min.)? @ -Not obtained What testing was considered but not performed? (CT, X-rays, U/S, labs)? Why? @ -None What meds were considered but not given? Why? @ -None Did you discuss the management of the patient with other professionals? @ -No Did you reconcile home meds? @ -No Was smoking cessation discussed for >3mins.? @ -No Was critical care preformed (if so, how long)? @ -No Were there social determinants of health that impacted care today? How? (Homelessness, low income, unemployed, alcoholism, drug addiction, transportat ion, low edu. Level, literacy, decrease access to med. care, senior living, rehab)? @ -No Was there de-escalation of care discussed even if they declined? (Discuss DNR or withdrawal of care, Hospice)? @ -No What co-morbidities impacted this encounter? (DM, HTN, Smoking, COPD, CAD, Cancer, CVA, Hep., AIDS, mental health diagnosis, sleep apnea, morbid obesity)? @ -Chronic back pain Was patient admitted / discharged? @ -Discharged. X-ray of the lumbar spine obtained revealing no acute process. Pain controlled in the emergency department. Prescription for prednisone and Robaxin provided with dosing instructions reviewed for lumbar radiculopathy/sciatica. Information for orthopedic spine follow up provided. Andre stringer advised follow-up with her primary care provider. Undiagnosed new problem with uncertain prognosis? @ -None Drug Therapy requiring intensive monitoring for toxicity (Heparin, Nitro, Insulin, Cardizem)? @ -None Were any procedures done? @ -None Diagnosis/symptom? @ -Low back pain Acute, or Chronic, or Acute on Chronic? @ -Acute on chronic Uncomplicated (without systemic symptoms) or Complicated (systemic symptoms)? @ -Uncomplicated Side effects of treatment? @ -None Exacerbation, Progression, or Severe Exacerbation] @ -Exacerbation Poses a threat to life or bodily function? @ -No Return precautions reviewed in depth, the patient is instructed to return to the emergency department with any new, worsening, or concerning symptoms. Patient verbalized understanding. This case was discussed in detail with the attending ED physician, Dr. Blevins. Presentation, findings, and treatment plan discussed in detail as well. - Radiology Data Radiology results: report reviewed, image reviewed Disposition Clinical Impression: Lumbar radiculopathy Disposition: HOME SELF-CARE Instructions (If sedation given, give patient instructions): Lumbar Radiculopathy (ED) Additional Instructions: Return to the emergency department with any new, worsening, or concerning symptoms. Take the prednisone daily for 5 days. Take the Robaxin as 1 to 2 tablets up to 3-4 times daily. Be aware that this may make you drowsy. Make sure you also alternate with ibuprofen and Tylenol for pain relief. Contact orthopedics as below for a follow-up appointment. Follow up with your primary care provider in 1-2 days. Prescriptions: predniSONE 50 mg PO DAILY 5 Days #5 tab methocarbamoL [Robaxin-750] 1,500 mg PO TID PRN #30 tab PRN Reason: Pain Is patient prescribed a controlled substance at d/c from ED?: No Referrals: Dm Bobby DO [Doctor of Osteopathic Medicine] - As Soon As Possible Belén Ayala [Primary Care Provider] - 1-2 days Time of Disposition: 12:50
--- NOTE | 2023-08-12 12:10 | XR ---
EXAMINATION TYPE: XR lumbar spine 2 or 3V DATE OF EXAM: 08/12/2023 12:02 PM CLINICAL INDICATION:Female, 42 years old with history of Pain; PHH COMPARISON: None TECHNIQUE: XR lumbar spine 2 or 3V - Frontal, lateral and coned in L5-S1 lateral views of the spine. FINDINGS: No evidence of any acute osseous pathology. No evidence of loss of vertebral body height i s seen. There is normal alignment of the lumbar vertebral bodies. Mild scattered disc space narrowing . Multilevel marginal osteophyte formation throughout the visualized spine. There is facet joint arth ropathy throughout the spine. Scattered at least mild neural foraminal stenosis. IMPRESSION: 1. No acute fracture. 2. Mild multilevel disc degeneration.
[2023-08-12] MEDS: MORPHINE SULFATE 4 MG/ML SYRINGE IM STA (12:50)
[2023-08-12] MEDS: ACET/COD 300 MG/30 MG STARTER PACK 6 TAB BTL PO STA (12:52)
[2023-08-12 13:14] VITALS: BP 136/90; PULSE 82; RESP 18; TEMP 98.1
== END 2023-08-12 12:55 | disposition home or self-care (01) ==
LOC: EC 11:21
DX: M54.16 Radiculopathy, lumbar region (principal); F17.200 Nicotine dependence, unspecified, uncomplicated; F12.90 Cannabis use, unspecified, uncomplicated
CPT/HCPCS: 72100; 99284; 96372 ×3; J2270; J2360; J1885

== ENCOUNTER 2023-11-05 11:25 | Emergency (ER) | payer OTHER ==
--- NOTE | 2023-11-05 12:06 | ED ---
General Adult HPI - General Source: RN notes reviewed <Omar Bosch - Last Filed: 11/05/23 14:42> - General Source: patient Mode of arrival: ambulatory Limitations: no limitations <Bert Andrew - Last Filed: 11/05/23 14:48> - General Chief complaint: Back Pain/Injury Stated complaint: Back Pain Time Seen by Provider: 11/05/23 11:37 - History of Present Illness Initial comments: Dictation was produced using [employer] dictation software. please excuse any grammatical, word or spelling errors. Chief Complaint: 43-year-old female presents with back pain History of Present Illness: Patient is a 43-year-old female presents to the emergency department with back pain. Patient states she has chronic back pain sees a patient resource specialist. Over the weekend approximately 4 days ago she fell. She was standing on rocks taking pictures when she fell landing in a twisted motion. Patient [place] any radiation of symptoms. Patient able to ambulate with a limp. No saddle anesthesia. Denies any fever. The ROS documented in this emergency department record has been reviewed and confirmed by me. Those systems with pertinent positive or negative responses have been documented in the HPI. All other systems are other negative and/or noncontributory. (Bert Andrew) - Related Data Home Medications Medication Instructions Recorded Confirmed Venlafaxine HCl ER [Effexor Xr] 75 mg PO DAILY 08/12/23 08/12/23 Venlafaxine HCl [Effexor XR] 150 mg PO DAILY 08/12/23 08/12/23 busPIRone HCL 15 mg PO BID 08/12/23 08/12/23 clonazePAM 1 mg PO BID 08/12/23 08/12/23 hydrOXYzine HCL [Atarax] 25 mg PO HS 08/12/23 08/12/23 Previous Rx's Medication Instructions Recorded methocarbamoL [Robaxin-750] 1,500 mg PO TID PRN #30 tab 08/12/23 predniSONE 50 mg PO DAILY 5 Days #5 tab 08/12/23 HYDROcodone/APAP 5-325MG [[place] 5] 1 each PO Q6HR PRN #12 tab 11/05/23 Allergies Allergy/AdvReac Type Severity Reaction Status Date / Time No Known Allergies Allergy Verified 08/12/23 11:52 Review of Systems ROS Other: All systems not noted in ROS Statement are negative. <Omar Bosch - Last Filed: 11/05/23 14:42> ROS Other: All systems not noted in ROS Statement are negative. <Bert Andrew - Last Filed: 11/05/23 14:48> ROS Statement: Those systems with pertinent positive or pertinent negative responses have been documented in the HPI. Past Medical History Past Medical History: No Reported History Additional Past Medical History / Comment(s): endometriosis chronic back pain History of Any Multi-Drug Resistant Organisms: None Reported Additional Past Surgical History / Comment(s): Lap Past Psychological History: No Psychological Hx Reported Smoking Status: Current every day smoker Past Alcohol Use History: None Reported Past Drug Use History: Marijuana - Past Family History Father Family Medical History: Congestive Heart Failure (CHF) <Bert Andrew - Last Filed: 11/05/23 14:48> General Exam Limitations: no limitations <Bert Andrew - Last Filed: 11/05/23 14:48> - General Exam Comments Initial Comments: PHYSICAL EXAM: General Impression: Alert and oriented x3, not in acute distress HEENT: Normocephalic atraumatic, extra-ocular movements intact, pupils equal and reactive to light bilaterally, mucous membranes moist. Cardiovascular: Heart regular rate and rhythm Chest: Able to complete full sentences, no retractions, no tachypnea Abdomen: abdomen soft, non-tender, non-distended, no organomegaly Musculoskeletal: Pulses present and equal in all extremities, no peripheral edema Motor: no focal deficits noted Neurological: CN II-XII grossly intact, no focal motor or sensory deficits noted Skin: Intact with no visualized rashes Psych: Normal affect and mood (Bert Andrew) Course Vital Signs 11/05/23 11:33 Temperature 98.3 F Pulse Rate 80 Respiratory 20 Rate Blood Pressure 131/85 O2 Sat by Pulse 98 Oximetry Medical Decision Making <Bert Andrew - Last Filed: 11/05/23 14:48> - Medical Decision Making Was pt. sent in by a medical professional or institution (, PA, [facility], urgent care, hospital, or skilled nursing...) When possible be specific @ -No Did you speak to anyone other than the patient for history (EMS, parent, family, police, friend...)? What history was obtained from this source @ -No Did you review nursing and triage notes (agree or disagree)? Why? @ -I reviewed and agree with nursing and triage notes Were old charts reviewed (outside hosp., previous admission, EMS record, old EKG, old radiological studies, urgent care reports/EKG's, skilled nursing records)? Report findings @ -No old charts were reviewed Differential Diagnosis (chest pain, altered mental status, abdominal pain women, abdominal pain men, vaginal bleeding, musculoskeletal, weakness, fever, dyspnea, syncope, headache, dizziness, GI bleed, back pain, seizure, CVA, palpatations, mental health)? @ -Differential Back Pain: Strain, zoster, cauda equina syndrome, epidural abscess, vertebral osteomyelitis, discitis, fracture, subluxation, disc herniation, DJD, spinal stenosis, dissection, AAA, pancreatitis, peptic ulcer disease, pyelonephritis, kidney stone, this is not meant to be an all-inclusive list. EKG interpreted by me (3pts min.). @ -None done X-rays interpreted by me (1pt min.). @ -None done CT interpreted by me (1pt min.). @ -CT scan of lumbar spine without contrast shows no acute processes U/S interpreted by me (1pt. min.). @ -None done What testing was considered but not performed or refused? (CT, X-rays, U/S, labs)? Why? @ -None What meds were considered but not given or refused? Why? @ -None Was smoking cessation discussed for >3mins.? @ -No Were there social determinants of health that impacted care today? How? (Homelessness, low income, unemployed, alcoholism, drug addiction, transportation, low edu. Level, literacy, decrease access to med. care, retirement, rehab)? @ -No Was there de-escalation of care discussed even if they declined (Discuss DNR or withdrawal of care, Hospice)? DNR status @ -No What co-morbidities impacted this encounter? (DM, HTN, Smoking, COPD, CAD, Cancer, CVA, ARF, Chemo, Hep., AIDS, mental health diagnosis, sleep apnea, morbid obesity)? @ -None Was patient admitted / discharged? Hospital course, mention meds given and route, prescriptions, significant lab abnormalities, going to OR and other pertinent info. @ -43 yo F presents with traumatic back pain. patient fell several days ago. vital signs stable. no red flag symptoms. CT ordered for back pain after fall. CT negative. patient discharged with follow up to her patient resource specialist. Did you discuss the management of the patient with other professionals (ann emarie aleman i.eLb Cardenas, PA, [facility], lab, RT, psych nurse, sr. social media & mobile manager, medical csr, teacher, public safety officer, case assistant)? Give summary @ -No Was critical care preformed (if so, how long)? @ -No Undiagnosed new problem with uncertain prognosis? @ -No Drug Therapy requiring intensive monitoring for toxicity (Heparin, Nitro, Insulin, Cardizem)? @ -No Were any procedures done? @ -No Diagnosis/symptom? Acute, or Chronic, or Acute on Chronic? Uncomplicated (without systemic symptoms) or Complicated (systemic symptoms)? @ -Back strain Side effects of treatment? @ -No Exacerbation, Progression, or Severe Exacerbation? @ -No Poses a threat to life or bodily function? How? (Chest pain, [place], [place], pneumonia, PE, COPD, DKA, ARF, appy, cholecystitis, CVA, Diverticulitis, Homicidal, Suicidal, threat to staff... and all critical care pts) @ -No (Bert Andrew) Disposition Is patient prescribed a controlled substance at d/c from ED?: Yes When asked, does pt state using other controlled substances?: No If prescribed controlled substance>3 days was MAPS reviewed?: Prescribed <3 Days If opioid is for acute pain is fill amount 7 days or less?: Yes If Rx opioid, was Start Talking consent form obtained?: Yes Time of Disposition: 14:43 <Omar Bosch - Last Filed: 11/05/23 14:42> Is patient prescribed a controlled substance at d/c from ED?: Yes If prescribed controlled substance>3 days was MAPS reviewed?: Prescribed <3 Days <Bert Andrew - Last Filed: 11/05/23 14:48> Clinical Impression: Mechanical back pain Disposition: HOME SELF-CARE Condition: Stable Instructions (If sedation given, give patient instructions): Acute Low Back Pain (ED) Additional Instructions: Please return to the Er for any concerns Prescriptions: HYDROcodone/APAP 5-325MG [[place] 5] 1 each PO Q6HR PRN #12 tab PRN Reason: Pain Referrals: Belén Ayala [Primary Care Provider] - 1-2 days Dm Bobby DO [Doctor of Osteopathic Medicine] - 1-2 days
[2023-11-05] MEDS: MORPHINE SULFATE 4 MG/ML SYRINGE IM STA (12:23)
--- NOTE | 2023-11-05 13:41 | CT ---
EXAMINATION TYPE: CT lumbar spine wo con DATE OF EXAM: 11/05/2023 COMPARISON: Radiograph 08/31/2023 HISTORY: 43-year-old female Back pain post fall x1 week ago. TECHNIQUE: Contiguous axial scanning of the lumbar spine without IV contrast. Coronal and sagittal re constructions performed. CT DLP: 733.7 mGycm Automated exposure control for dose reduction was used. FINDINGS: Accentuated lower lumbar lordosis. Grade 1 retrolisthesis L2-L3 and L3-L4. Mild degenerative disc disease with disc bulging at L5-S1. No large focal disc herniation or significant spinal canal stenosis. Scattered mild facet arthropathy. On the left, changes result in mild inferior neural foraminal narrowing at L5-S1. On the right, changes result in mild neuroforaminal stenosis at L5-S1. No prevertebral or paravertebral soft tissue abnormality. IMPRESSION: 1. ACCENTUATED LOWER LUMBAR LORDOSIS. GRADE 1 RETROLISTHESIS L2-L3 AND L3-L4. 2. MILD DEGENERATIVE DISC DISEASE L5-S1 WITH DISC BULGING AND SCATTERED MILD FACET ARTHROPATHY. 3. NO LARGE FOCAL DISC HERNIATION OR SIGNIFICANT SPINAL CANAL STENOSIS. 4. CHANGES RESULT IN MILD RIGHT NEUROFORAMINAL STENOSIS AT L5-S1 AND MINIMAL INFERIOR NEURAL FORAMINA L NARROWING ON THE LEFT.
[2023-11-05 14:56] VITALS: BP 148/87; PULSE 73; RESP 18; TEMP 98
== END 2023-11-05 14:57 | disposition home or self-care (01) ==
LOC: EC 11:25
DX: S39.012A Strain of muscle, fascia and tendon of lower back, initial encounter (principal); F17.200 Nicotine dependence, unspecified, uncomplicated; W19.XXXA Unspecified fall, initial encounter; X50.1XXA Overexertion from prolonged static or awkward postures, initial encounter
CPT/HCPCS: 99283; 96372; 72131; J2270

== ENCOUNTER → 2023-11-14 | Outpatient (CLI) | payer OTHER ==
--- NOTE | 2023-11-14 12:41 | MR ---
EXAMINATION TYPE: MR lumbar spine wo con DATE OF EXAM: 11/14/2023 9:27 AM CLINICAL INDICATION:Female, 43 years old with history of Lumbar pain M47.816; PHH, Low back pain into left side, Fell on rocks, COMPARISON: 11/05/2023 TECHNIQUE: Multi planar, multi sequence imaging was performed utilizing: T1-weighted, T2-weighted, a nd turbo inversion recovery imaging of the lumbar spine. IV Contrast: cc . (None if empty) FINDINGS: Alignment: The lumbar vertebral bodies have preserved heights and alignment. Cord: The conus medullaris and the distal spinal cord appear unremarkable with regards to their signa l intensity and morphology. Bones/Discs: Minimal disc degeneration changes worse at T11-T12 with disc space narrowing, osteophyte s and Schmorl's nodes. Intervertebral disc signal is maintained. No abnormal inversion recovery signa l to suggest bony edema. T12-L1: No evidence of significant spinal canal stenosis or neural foraminal stenosis. L1-L2: No evidence of significant spinal canal stenosis or neural foraminal stenosis. L2-L3: No evidence of significant spinal canal stenosis or neural foraminal stenosis. L3-L4: No evidence of significant spinal canal stenosis or neural foraminal stenosis. L4-L5: No evidence of significant spinal canal stenosis or neural foraminal stenosis. L5-S1: The disc has a rounded posterior morphology without significant spinal canal stenosis. Facet j oint arthropathy with mild bilateral neural foraminal stenosis. No significant spinal canal or neural foraminal stenosis in the remainder of the visualized levels. Other findings: None. IMPRESSION: 1. No definitive evidence of disc herniation or significant spinal canal stenosis. Alignment is felt to be within normal limits. No finding to correlate with patient's left-sided symptoms. 2. Mild disc degeneration with associated osteoarthritic changes.
== END | disposition home or self-care (01) ==
LOC: RADMRIMAIN 08:45
PROVIDERS: ATTEND Orthopaedic Surgery
DX: M51.36 Other intervertebral disc degeneration, lumbar region (principal); M47.816 Spondylosis without myelopathy or radiculopathy, lumbar region
CPT/HCPCS: 72148

== ENCOUNTER → 2023-12-01 | Outpatient (CLI) | payer OTHER ==
--- NOTE | 2023-12-02 15:05 | MR ---
EXAMINATION TYPE: MR thoracic spine wo con DATE OF EXAM: 12/01/2023 2:12 PM COMPARISON: NONE HISTORY: Back Pain for many years Multiplanar MultiSpin echo imaging of the thoracic spine was performed. Disc spaces: Mild decreased signal ossified at T8-T9 with small right paracentral protrusion. Minimal ventral CORD contact to exclude. No evidence for myelopathy. No evidence for central stenosis. Remai zoe levels are within normal limits. Spinal canal: No evidence for canal stenosis. No intrinsic or extrinsic lesion. Thoracic spinal cord: Thoracic spinal cord is of normal caliber and signal. Paraspinal soft tissues: No evidence for paraspinal mass. No destructive lesions seen. Vertebral segments: No evidence for fracture or bony lesion. IMPRESSION: 1. Mild decreased signal ossified at T8-T9 with small right paracentral protrusion. Minimal ventral CORD contact to exclude. No evidence for myelopathy. No evidence for central stenosis.
== END | disposition home or self-care (01) ==
LOC: RADMRIMAIN 13:15
PROVIDERS: ATTEND Orthopaedic Surgery
DX: M51.24 Other intervertebral disc displacement, thoracic region (principal)
CPT/HCPCS: 72146